=== PATIENT | male | born 1985 | race African-American/Black ===

== ENCOUNTER 2021-11-19 15:39 | Emergency (ER) | payer OTHER ==
[~2021-11-19] VITALS: Ht 167.6 cm; Wt 78.2 kg
[2021-11-19] MEDS ORDERED: DERMABOND TOPICAL SKIN ADHESIVE TOP ONE (17:55)
[2021-11-19] MEDS ORDERED: BOOSTRIX/ADACEL VACCINE (DIPHTH/PERTUSS/ACELL/TETANUS) 0.5ML SYR IM ONE (18:10)
[2021-11-19 19:03] VITALS: BP 145/80
== END 2021-11-19 19:03 | disposition home or self-care (01) ==
LOC: M ED 15:39
DX: S61.213A Laceration without foreign body of left middle finger without damage to nail, initial encounter (principal); W25.XXXA Contact with sharp glass, initial encounter; Y92.9 Unspecified place or not applicable; Y93.9 Activity, unspecified; Y99.9 Unspecified external cause status